=== PATIENT | male | born 1980 | race Caucasian/White ===

== ENCOUNTER 2018-05-17 14:13 | Emergency (ER) | payer BC, OTHER ==
[~2018-05-17] VITALS: Ht 198.1 cm; Wt 108.0 kg
[2018-05-17 15:26] LABS: HEMATOCRIT 43.3 % (39.0-50.0); HEMOGLOBIN 14.6 g/dl (14.0-18.0); IMMATURE GRANULOCYTES 0.3 % (0.0-1.0); MEAN CELL VOLUME 86.3 fL CALC (80.0-100.0); MEAN CORPUSCULAR HGB 29.1 pG CALC (26.0-32.0); MEAN CORPUSCULAR HGB CONC 33.7 g/L CALC (32.0-36.0); NEUT# 4.51 thou/uL (1.82-7.42); RED BLOOD COUNT 5.02 mill/uL (4.70-6.10); RED CELL DISTRI WIDTH 15.1 % (11.5-15.5)
[2018-05-17 15:43] LABS: ALBUMIN 4.5 g/dL (3.2-5.0); ALKALINE PHOSPHATASE 92 u/l (38-126); ANION GAP 16 (6-22 (CALC)); BILIRUBIN, TOTAL 0.3 mg/dL (0.0-1.4); BUN 13 mg/dL (9-20); BUN/CREATININE RATIO 24 (12-20 (CALC)); CARBON DIOXIDE 25 mmol/l (22-30); CHLORIDE 103 mmol/l (95-108); CREATININE 0.5 mg/dL (0.7-1.3); GFR > 60 ML/MIN (>=60 (CALC)); GFR FOR AFR.AMER. > 60 ML/MIN (>=60 (CALC)); LIPASE 44 u/l (23-300); POTASSIUM 4.1 mmol/l (3.5-5.1); SGOT/AST 21 u/l (17-59); SGPT/ALT 36 u/l (21-72); SODIUM 140 mmol/l (137-146); TOTAL PROTEIN 8.2 g/dL (6.3-8.2)
[2018-05-17 15:53] LABS: URINE BILIRUBIN - DIPSTICK NEGATIVE (NEGATIVE); URINE BLOOD DIPSTICK NEGATIVE (NEGATIVE); URINE COLOR YELLOW; URINE GLUCOSE - DIPSTICK NEGATIVE (NEGATIVE); URINE KETONE NEGATIVE (NEGATIVE); URINE LEUK ESTERASE NEGATIVE (NEGATIVE); URINE NITRITE - DIPSTICK NEGATIVE (Negative); URINE PH 6.5 (4.5-8.0); URINE PROTEIN - DIPSTICK NEGATIVE (NEG-TRACE); URINE SPECIFIC GRAVITY 1.025; URINE UROBILINOGEN - DIPSTICK 0.2 E.U./dL (0.2)
[2018-05-17 15:57] LABS: URINE CLARITY SL CLOUDY
[2018-05-17 17:55] VITALS: BP 144/84
== END 2018-05-17 17:56 | disposition home or self-care (01) | DRG 392 ==
LOC: ED 14:13
PROVIDERS: Family Medicine
DX: R10.32 Left lower quadrant pain (principal); R10.11 Right upper quadrant pain; M25.551 Pain in right hip; K57.30 Diverticulosis of large intestine without perforation or abscess without bleeding
CPT/HCPCS: Q9967

== ENCOUNTER 2018-10-27 07:45 | Emergency (ER) | payer BC, MEDICAID ==
[~2018-10-27] VITALS: Ht 198.1 cm; Wt 150.0 kg
[2018-10-27] MEDS ORDERED: GABAPENTIN100 MG PO (07:59)
[2018-10-27 09:47] VITALS: BP 125/84
== END 2018-10-27 09:47 | disposition home or self-care (01) | DRG 103 ==
LOC: ED 07:45
DX: G43.909 Migraine, unspecified, not intractable, without status migrainosus (principal); F17.210 Nicotine dependence, cigarettes, uncomplicated; R11.0 Nausea